=== PATIENT | female | born 1945 | race Caucasian/White ===

== ENCOUNTER 2022-05-21 09:06 | Day surgery (SDC) | payer MEDICARE ==
[~2022-05-21] VITALS: Ht 170.2 cm; Wt 60.9 kg
--- NOTE | 2022-05-21 09:42 | NUR ---
05/21/22 0967 Alda Zavala 0916 PLEDGET AT 5063
== END 2022-05-21 11:00 | disposition home or self-care (01) ==
LOC: ORSCSDS 09:06
PROVIDERS: Ophthalmology
PROC: 08DJ3ZZ Extraction of Right Lens, Percutaneous Approach (ICD-10-PCS; principal; 2022-05-21 10:30)
DX: H25.13 Age-related nuclear cataract, bilateral (principal); H35.3133 Nonexudative age-related macular degeneration, bilateral, advanced atrophic without subfoveal involvement; K21.9 Gastro-esophageal reflux disease without esophagitis; F17.210 Nicotine dependence, cigarettes, uncomplicated
CPT/HCPCS: J2001; J2250; J3010; J3301; J7040; V2632

== ENCOUNTER 2022-06-11 12:19 | Day surgery (SDC) | payer MEDICARE ==
[~2022-06-11] VITALS: Ht 170.2 cm; Wt 59.7 kg
--- NOTE | 2022-06-11 13:00 | NUR ---
06/11/22 1300 Alda Zavala AT 1259 [address] AT 1300
--- NOTE | 2022-06-11 14:48 | NUR ---
06/11/22 1448 John Germain PT D/C PAIN 09/01, PT STATES PAIN LEVEL IS ACCEPTABLE TO HER TO GO HOME, PT D/C AMBU TO CAR DRIVEN BY BROTHER, VS WNL, RESP CTA BILAT, ON RA, PT VU OF D/C INSTRUCTIONS, PERSONAL BELONGINGS PURSE SWEATER GIVEN TO PT, PT DENIES ANY NEEDS AT D/C.
== END 2022-06-11 14:45 | disposition home or self-care (01) ==
LOC: ORSCSDS 12:19
PROVIDERS: Ophthalmology
PROC: 08DK3ZZ Extraction of Left Lens, Percutaneous Approach (ICD-10-PCS; principal; 2022-06-11 14:00)
DX: H25.12 Age-related nuclear cataract, left eye (principal); H35.30 Unspecified macular degeneration; Z96.1 Presence of intraocular lens; K21.9 Gastro-esophageal reflux disease without esophagitis; F17.210 Nicotine dependence, cigarettes, uncomplicated
CPT/HCPCS: J2001; J2250; J3010; J3301; J7040; V2632